=== PATIENT | male | born 1980 | race Caucasian/White ===

== ENCOUNTER 2021-06-13 12:59 | Day surgery (SDC) | payer OTHER ==
[~2021-06-13] VITALS: Ht 188 cm; Wt 89.5 kg
[~2021-06-13 12:59] MED LIST: AMIO200T3 PO; BISO10TA13 PO; DIGO0.123 PO; ELIQ5TAB PO; ENTR1TAB PO; FARX1TAB3 PO; LAMO25TA4 PO; LEXA1TAB2 PO; LR 1,000 ML IV ONE; RISP1TAB42 PO
[2021-06-13] MEDS ORDERED: LIDOCAINE 2% 100MG/5ML SDV (FOR ANES.) As Ordered ONE (13:29)
[2021-06-13] MEDS ORDERED: fentaNYL 100 MCG/2 ML INJECTION (J3010) As Ordered ONE (13:29)
[2021-06-13] MEDS ORDERED: MIDAZOLAM INJ 2MG/2ML VIAL (J2250 PER 1MG) As Ordered ONE (13:29)
[2021-06-13] MEDS ORDERED: propofoL 200 MG/20 ML VIAL As Ordered ONE ×2 (13:29→14:24)
[2021-06-13] MEDS ORDERED: CETACAINE SPRAY 5GM As Ordered ONE (13:30)
[2021-06-13] MEDS ORDERED: LIDOCAINE 2% JELLY 5ML TUBE As Ordered ONE (13:30)
[2021-06-13] MEDS ORDERED: LIDOCAINE VISCOUS 2% SOLN 15ML UDC As Ordered ONE (13:31)
[2021-06-13 15:25] VITALS: BP 111/75
--- NOTE | 2021-06-13 16:26 | T-ECHO ---
TRANSESOPHAGEAL ECHO DATE: 06/13/2021 PREPROCEDURE DIAGNOSIS: Mitral valve prolapse/mitral regurgitation (nonrheumatic). POSTPROCEDURE DIAGNOSIS: Mitral valve prolapse/mitral regurgitation (nonrheumatic). FINDINGS: Mild prolapse involving the distal one-third of the anterior mitral leaflet. Moderate mitral regurgitation. Dilated cardiomyopathy. PROCEDURE PERFORMED: Transesophageal echocardiogram. PROCEDURE PERFORMED BY: Eric De La Vega MD. UMBRELLA CUTTER: None. IV SEDATION: Propofol IV per LEAFLET DISTRIBUTOR. COMPLICATIONS: None. PROCEDURE DESCRIPTION: Patient received viscous lidocaine to gargle. He received IV sedation with Propofol as administered by the LEAFLET DISTRIBUTOR. Esophageal intubation was accomplished by Dr. De La Vega without difficulty using a Jay two dimensional transesophageal echocardiogram probe (Jay) without difficulty. The left ventricle appeared to be dilated and moderately severely globally hypokinetic. Severe reduction overall of LV systolic function. Gastric views were fairly technically difficult. Severe reduction overall of LV systolic function. LVEF 25% by visual estimate. Right ventricle appeared to be globally hypokinetic with severe reduction in RV systolic function. Type 1 spontaneous echo contrast was seen in the left atrium. Both atria appeared to be enlarged. No masses or thrombi were seen within the atria or other appendages. The atrial septum was intact anatomically and by color flow Doppler. The anterior mitral leaflet was mildly myxomatous, and there was mild focal prolapse of the distal one-third of the anterior mitral leaflet (probably the middle segment). No broken chordae or flail segments. Moderate mitral regurgitation was present. Pulmonary venous connections into the left atrium appeared to be normal. No pericardial effusion. Distal aortic arch and descending thoracic aorta were normal. CONCLUSIONS: 1. Myxomatous anterior mitral leaflet with mild prolapse of the distal one-third of the anterior mitral leaflet. No broken chordae or flail segments. Associated moderate mitral regurgitation. 2. Dilated left ventricle with moderately severe global LV hypokinesis and severe reduction of overall LV systolic function. LVEF 25% by visual assessment. 3. Globally hypokinetic right ventricle with severe reduction in RV systolic function. 4. Type 1 spontaneous echo contrast seen in the left ventricle. 5. No thrombi in the left atrial appendage or left atrium.
--- NOTE | 2021-06-14 18:02 | ECGEPIP ---
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
== END 2021-06-13 15:25 | disposition home or self-care (01) ==
LOC: M SDC 12:59
PROVIDERS: ATTEND Internal Medicine Cardiovascular Disease
DX: I34.1 Nonrheumatic mitral (valve) prolapse (principal); I34.0 Nonrheumatic mitral (valve) insufficiency; I42.0 Dilated cardiomyopathy; I11.0 Hypertensive heart disease with heart failure; I50.42 Chronic combined systolic (congestive) and diastolic (congestive) heart failure; I48.19 Other persistent atrial fibrillation; R07.89 Other chest pain; K21.9 Gastro-esophageal reflux disease without esophagitis; F17.220 Nicotine dependence, chewing tobacco, uncomplicated; Z79.899 Other long term (current) drug therapy; Z79.01 Long term (current) use of anticoagulants; Z79.82 Long term (current) use of aspirin
CPT/HCPCS: J2250; J3010